=== PATIENT | female | born 1950 | race Caucasian/White ===

== ENCOUNTER 2020-03-24 10:13 | Day surgery (SDC) | payer MEDICARE, BC ==
[2020-03-24] MEDS ORDERED: DIPRIVAN 200 MG/20 ML IV ONE (10:14)
[2020-03-24] MEDS ORDERED: BUPIVACAINE 0.5% VIAL IJ ONE (10:14)
[2020-03-24] MEDS ORDERED: Ketamine HCl 50 MG/ML IV ONE (10:14)
[2020-03-24] MEDS ORDERED: Depo-Medrol 40 MG/ML IM ONE (10:14)
--- NOTE | 2020-03-24 14:12 | XRAY ---
Indication: Bilateral L4-S1 MBB. Intraoperative fluoroscopy was provided for 24 seconds. Single digital spot image submitted for interpretation demonstrates posterior needle tips projecting over the expected course of the left and right L4-S1 nerve roots. Correlate with intraoperative findings/report.
[2020-03-24] MEDS ORDERED: Lactated Ringers 1,000 ML IV ONE (14:26)
--- NOTE | 2020-03-24 15:11 | XRAY ---
24 seconds fluoroscopy time in surgery for bilateral L4-S1 MBB.
== END 2020-03-24 12:22 | disposition home or self-care (01) ==
LOC: SDC-PAIN 10:13
PROVIDERS: ATTEND Psychiatry & Neurology Pain Medicine
DX: M47.816 Spondylosis without myelopathy or radiculopathy, lumbar region (principal); M79.7 Fibromyalgia; G62.9 Polyneuropathy, unspecified; D64.9 Anemia, unspecified; K21.9 Gastro-esophageal reflux disease without esophagitis; Z79.899 Other long term (current) drug therapy; F41.8 Other specified anxiety disorders
CPT/HCPCS: 64493; 64494; 72020; 77002; J1030; J2704

== ENCOUNTER 2020-04-07 10:03 | Day surgery (SDC) | payer MEDICARE, BC ==
[2020-04-07] MEDS ORDERED: Depo-Medrol 40 MG/ML IM ONE (10:04)
[2020-04-07] MEDS ORDERED: BUPIVACAINE 0.5% VIAL IJ ONE (10:04)
[2020-04-07] MEDS ORDERED: Ketamine HCl 50 MG/ML ONE (12:05)
[2020-04-07] MEDS ORDERED: Lactated Ringers 1,000 ML IV ONE (15:30)
--- NOTE | 2020-04-08 08:36 | XRAY ---
Indication: Bilateral L4-S1 MBB. Intraoperative fluoroscopy was provided for 22 seconds. Single digital spot image submitted for interpretation demonstrates posterior needle tips projecting over the expected course of the left and right L4-S1 nerve roots. Correlate with intraoperative findings/report.
--- NOTE | 2020-04-08 08:38 | XRAY ---
22 seconds fluoroscopy time in surgery for bilateral L4-S1 MBB.
== END 2020-04-07 12:38 | disposition home or self-care (01) ==
LOC: SDC-PAIN 10:03
PROVIDERS: ATTEND Psychiatry & Neurology Pain Medicine
DX: M47.816 Spondylosis without myelopathy or radiculopathy, lumbar region (principal); E11.9 Type 2 diabetes mellitus without complications; G62.9 Polyneuropathy, unspecified; M79.7 Fibromyalgia; K21.9 Gastro-esophageal reflux disease without esophagitis; D64.9 Anemia, unspecified; Z79.899 Other long term (current) drug therapy
CPT/HCPCS: 64493; 64494; 72020; 77002; 82962; J1030

== ENCOUNTER 2020-05-26 07:48 | Day surgery (SDC) | payer MEDICARE, BC ==
[~2020-05-26 07:48] MED LIST: DIPRIVAN 200 MG/20 ML IV ONE; Ketamine HCl 50 MG/ML ONE
[2020-05-26] MEDS ORDERED: Depo-Medrol 40 MG/ML IM ONE (07:49)
[2020-05-26] MEDS ORDERED: BUPIVACAINE 0.5% VIAL IJ ONE (07:49)
[2020-05-26] MEDS ORDERED: Xylocaine 1% Vial 30 ML PF IJ ONE (07:49)
--- NOTE | 2020-05-26 12:10 | XRAY ---
Indication: Left L4-S1 RFA. Intraoperative fluoroscopy was provided for 23 seconds. 3 digital spot images submitted for interpretation demonstrates posterior needle tips projecting over the expected left L4-S1 nerve roots. Correlate with intraoperative findings/report.
[2020-05-26] MEDS ORDERED: Lactated Ringers 1,000 ML IV ONE (13:47)
--- NOTE | 2020-05-26 16:55 | XRAY ---
23 seconds of fluoroscopy was used in surgery for a left L4-L5, L5-S1 RFA.
== END 2020-05-26 09:50 | disposition home or self-care (01) ==
LOC: SDC-PAIN 07:48
PROVIDERS: ATTEND Psychiatry & Neurology Pain Medicine
DX: M47.817 Spondylosis without myelopathy or radiculopathy, lumbosacral region (principal); D64.9 Anemia, unspecified; E11.9 Type 2 diabetes mellitus without complications; K21.9 Gastro-esophageal reflux disease without esophagitis; G62.9 Polyneuropathy, unspecified; M79.7 Fibromyalgia; Z79.899 Other long term (current) drug therapy; E16.2 Hypoglycemia, unspecified
CPT/HCPCS: 64635; 64636; 72100; 77002; 82962; J1030; J2001; J2704

== ENCOUNTER 2020-06-02 10:14 | Day surgery (SDC) | payer MEDICARE, BC ==
[2020-06-02] MEDS ORDERED: Xylocaine 1% Vial 30 ML PF IJ ONE (10:15)
[2020-06-02] MEDS ORDERED: Depo-Medrol 40 MG/ML IM ONE (10:15)
[2020-06-02] MEDS ORDERED: BUPIVACAINE 0.5% VIAL IJ ONE (10:15)
--- NOTE | 2020-06-02 13:05 | XRAY ---
Indication: Right L4-S1 RFA. Intraoperative fluoroscopy was provided for 30 seconds. 3 digital spot images submitted for interpretation demonstrates posterior needle tips projecting over the expected right L4-S1 nerve roots. Correlate with intraoperative findings/report.
--- NOTE | 2020-06-02 13:17 | XRAY ---
30 seconds fluoroscopy time in surgery for right L4-S1 RFA.
[2020-06-02] MEDS ORDERED: Lactated Ringers 1,000 ML IV ONE (16:49)
== END 2020-06-02 12:22 | disposition home or self-care (01) ==
LOC: SDC-PAIN 10:14
PROVIDERS: ATTEND Psychiatry & Neurology Pain Medicine
DX: M47.816 Spondylosis without myelopathy or radiculopathy, lumbar region (principal); E16.2 Hypoglycemia, unspecified; D64.9 Anemia, unspecified; K21.9 Gastro-esophageal reflux disease without esophagitis; M79.7 Fibromyalgia; G62.9 Polyneuropathy, unspecified; F41.8 Other specified anxiety disorders; Z79.899 Other long term (current) drug therapy
CPT/HCPCS: 64635; 64636; 72100; 77002; 82947; 82962; 99100; J1030; J2001; J2704